=== PATIENT | female | born 1980 | race African-American/Black ===

== ENCOUNTER 2019-09-19 06:38 | Inpatient (IN) ==
[2019-09-11 15:26] LABS: Basophils % 0.3 % (0.0-0.8); Eosinophils # 0.1 10*3/uL (0.0-0.87); Eosinophils % 1.5 % (0.00-10.9); Hematocrit 33.5 VOL% (35.7-47.0); Hemoglobin 10.4 GM/DL (12.0-16.0); Immature Granulocytes % 0.3 %; Immature Granulocytes Absolute 0.02 #; Lymphocytes # 1.6 10*3/uL (1.4-4.0); Lymphocytes % 22.1 % (21.3-54.2); Mean Corpuscular Volume 77.4 FL (87-102); Mean Platelet Volume 9.9 FL (9.6-12.0); Monocytes % 8.1 % (1.7-12.7); Neutrophils % 67.7 % (38.7-73.9); Platelet Count 311 T/CUMM (130-400); Red Blood Count 4.33 MC/CUMM (3.8-5.5); Red Cell Distribution Width 18.9 % (9.3-17.3); White Blood Count 7.4 T/CUMM (4-12)
[2019-09-11 15:36] LABS: PT Patient Result 10.5 SECS (9.6-12.2); Partial Thromboplastin Time 23.8 SECS (20.8-36.0)
[2019-09-11 15:52] LABS: Calcium 8.7 MG/DL (8.5-10.1)
[~2019-09-19 06:38] MED LIST: LACTATED RINGERS 1,000 ML IV SCH; ceFAZolin 1,000 MG VIAL ONE; ceFAZolin 1,000 MG in SYRINGE 1 EACH IV ONE
[2019-09-19] MEDS ORDERED: ACETAMINOPHEN 500 MG TABLET PO ONE (07:08)
[2019-09-19] MEDS ORDERED: PANTOPRAZOLE 40 MG TABLET PO ONE ×2 (07:08→07:15)
[2019-09-19 07:09] LABS: Apearance,Urine CLEAR (Clear); Bilirubin,Urine Negative (Negative); Blood, Urine Negative (Negative); Glucose,Urine (UA) Negative (Negative); Hyaline Casts,Urine 1 /LPF (0-3); Ketones,Urine Negative (Negative); Mucus,Urine Many /LPF (Occasional); Nitrite,Urine Negative (Negative); Protein,Urine Negative; RBC,Urine <1 /HPF (0-4); Squamous Epithelial Cell,Urine Occasional /HPF (0-10); Urine Color Yellow (Yellow); Urine Specific Gravity 1.024 (1.001-1.035); Urine Urobilinogen < 2.0 EU/DL (0.2-1.0); WBC,Urine <1 /HPF (0-6)
[2019-09-19] MEDS ORDERED: ACETAMINOPHEN 500 MG TABLET ONE (07:15)
[2019-09-19] MEDS ORDERED: BUPIVACAINE MPF 0.5% /EPI 30 ML VIAL ONE (07:58)
[2019-09-19] MEDS ORDERED: LIDOCAINE 2% 5 ML VIAL ONE ×2 (07:58→12:55)
[2019-09-19] MEDS ORDERED: MIDAZOLAM 2 MG/2 ML VIAL ONE ×2 (07:59→12:55)
[2019-09-19] MEDS ORDERED: fentaNYL 100 MCG/2 ML VIAL ONE ×2 (07:59→12:55)
[2019-09-19] MEDS ORDERED: BENZOCAINE/MENTHOL LOZENGE 18/BOX PO PRN (12:33)
[2019-09-19] MEDS ORDERED: BISACODYL 10 MG SUPP RECTAL PRN (12:33)
[2019-09-19] MEDS ORDERED: ACETAMINOPHEN 325 MG TABLET PO PRN (12:33)
[2019-09-19] MEDS ORDERED: IBUPROFEN 800 MG TABLET PO PRN (12:33)
[2019-09-19 12:40] LABS: Apearance,Urine CLEAR (Clear); Bilirubin,Urine Negative (Negative); Blood, Urine Small mg/dL (Negative); Glucose,Urine (UA) Negative (Negative); Ketones,Urine Negative (Negative); Mucus,Urine Many /LPF (Occasional); Nitrite,Urine Negative (Negative); Protein,Urine Negative; RBC,Urine 7 /HPF (0-4); Squamous Epithelial Cell,Urine Occasional /HPF (0-10); Urine Color Yellow (Yellow); Urine Specific Gravity 1.026 (1.001-1.035); Urine Urobilinogen < 2.0 EU/DL (0.2-1.0)
[2019-09-19] MEDS ORDERED: propofoL 200 MG/20 ML VIAL IV ONE (12:55)
[2019-09-19] MEDS ORDERED: SEVOFLURANE 1 UNIT/15 MINUTE INH ONE (12:55)
[2019-09-19] MEDS ORDERED: SUCCINYLCHOLINE 200 MG/10 ML VIAL ONE (12:56)
[2019-09-19] MEDS ORDERED: LACTATED RINGERS 1,000 ML IV ONE (12:56)
[2019-09-19] MEDS ORDERED: ONDANSETRON 4 MG/2 ML VIAL ONE ×2 (12:56→13:01)
[2019-09-19] MEDS ORDERED: ROCURONIUM 100 MG/10 ML VIAL IV ONE (12:56)
[2019-09-19] MEDS ORDERED: ONDANSETRON 4 MG/2 ML VIAL IV PRN (12:59)
[2019-09-19] MEDS ORDERED: HYDROmorphone 2 MG/1 ML VIAL ONE (13:01)
[2019-09-19] MEDS: HYDROmorphone 2 MG/1 ML VIAL IV PRN ×4 (13:06→13:36)
[2019-09-19] MEDS: ONDANSETRON 4 MG/2 ML VIAL IV PRN (13:06)
[2019-09-19] MEDS ORDERED: INFLUENZA VIRUS VACCINE 0.5 ML SYRINGE IM ONE (14:23)
[2019-09-19] MEDS: LACTATED RINGERS 1,000 ML IV SCH (16:06)
[2019-09-19] MEDS: ceFAZolin 1,000 MG in SYRINGE 1 EACH IV SCH (17:41)
[2019-09-19] MEDS: oxyCODONE/ACETAMINOPHEN 5-325 MG TABLET PO PRN (19:53)
[2019-09-19] MEDS: KETOROLAC 30 MG/1 ML VIAL IV PRN (23:40)
[2019-09-20] MEDS: LACTATED RINGERS 1,000 ML IV SCH (02:02)
[2019-09-20] MEDS: ceFAZolin 1,000 MG in SYRINGE 1 EACH IV SCH (02:02)
[2019-09-20] MEDS: KETOROLAC 30 MG/1 ML VIAL IV PRN ×3 (05:02→20:45)
[2019-09-20] MEDS: ENOXAPARIN 40 MG/0.4 ML SYRINGE SUBCUT SCH (06:13)
[2019-09-20 06:16] LABS: Basophils % 0.2 % (0.0-0.8); Eosinophils % 0.3 % (0.00-10.9); Hematocrit 28.4 VOL% (35.7-47.0); Hemoglobin 8.8 GM/DL (12.0-16.0); Immature Granulocytes % 0.4 %; Immature Granulocytes Absolute 0.04 #; Lymphocytes # 1.7 10*3/uL (1.4-4.0); Lymphocytes % 16.2 % (21.3-54.2); Mean Corpuscular Volume 78.2 FL (87-102); Mean Platelet Volume 10.7 FL (9.6-12.0); Monocytes % 6.8 % (1.7-12.7); Neutrophils % 76.1 % (38.7-73.9); Platelet Count 236 T/CUMM (130-400); Red Blood Count 3.63 MC/CUMM (3.8-5.5); Red Cell Distribution Width 18.9 % (9.3-17.3); White Blood Count 10.6 T/CUMM (4-12)
[2019-09-20] MEDS: POTASSIUM CHLORIDE 20 MEQ TABLET PO SCH ×3 (06:18→20:44)
[2019-09-20] MEDS ORDERED: SUGAMMADEX 200 MG/2 ML VIAL IV ONE (06:37)
[2019-09-20] MEDS: MAGNESIUM HYDROXIDE SUSP 30 ML UDCUP PO PRN (08:39)
[2019-09-20] MEDS: DOCUSATE SODIUM 100 MG CAPSULE PO PRN ×2 (08:39→20:45)
[2019-09-20] MEDS: LISINOPRIL/HCTZ 20-12.5 MG TABLET PO SCH (08:40)
[2019-09-20] MEDS: ONDANSETRON 4 MG/2 ML VIAL IV PRN (11:59)
[2019-09-20] MEDS: oxyCODONE/ACETAMINOPHEN 5-325 MG TABLET PO PRN (17:10)
[2019-09-21] MEDS: oxyCODONE/ACETAMINOPHEN 5-325 MG TABLET PO PRN ×2 (03:01→10:16)
[2019-09-21] MEDS: ENOXAPARIN 40 MG/0.4 ML SYRINGE SUBCUT SCH (06:17)
[2019-09-21] MEDS: DOCUSATE SODIUM 100 MG CAPSULE PO PRN (08:29)
[2019-09-21] MEDS: MAGNESIUM HYDROXIDE SUSP 30 ML UDCUP PO PRN (08:29)
[2019-09-21] MEDS: POTASSIUM CHLORIDE 20 MEQ TABLET PO SCH (08:29)
[2019-09-21] MEDS: LISINOPRIL/HCTZ 20-12.5 MG TABLET PO SCH (08:31)
[2019-09-21] MEDS ORDERED: INFLUENZA VIRUS VACCINE 0.5 ML SYRINGE IM ONE (09:53)
[2019-09-21 11:41] VITALS: BP 140/85
== END 2019-09-21 12:15 | disposition home or self-care (01) | DRG 742 ==
LOC: N.SDS 06:38 → N.SDSINP 06:38 → EDSTATUS 10:30 → N.SDSINP 12:33 → N.OB 13:49
PROVIDERS: ADMIT Specialist; ATTEND Specialist